=== PATIENT | male | born 1980 | race Caucasian/White ===

== ENCOUNTER 2017-10-08 14:45 | Outpatient (CLI) | payer OTHER ==
--- NOTE | 2017-10-08 18:03 | CT ---
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 Rule out recurrence. COMPARISON: None. FINDINGS: The bilateral internal auditory canals, cochleae, vestibules, vestibular aqueducts, semicircular radha ls, facial nerve canals, carotid canals, jugular bulbs, and TMJs, have normal morphology. The left middle ear cavity, left mastoid antrum, and most of the left mastoid air cells are clear. There is thickening and retraction of the right tympanic membrane, contiguous with a small volume of soft tissue density material that partially fills a portion of the mesotympanum which abuts the tympa vic segment of the right facial nerve, and abuts the manubrium of the malleus. The ossicles are bilat erally intact, with no evidence of displacement or obvious erosion. The right scutum is truncated. Th is could be due to the previous cholesteatoma and/or previous surgery. A small area of the anterior a spect of the epitympanum, including what remains of Prussak's space, is partially opacified with a sm all amount soft tissue density material abutting the lateral aspect of the head of the malleus and german dy of incus. The right aditus ad antrum and right mastoid antrum are clear. There are fewer pneumatiz ed mastoid air cells on the right compared to the left. Most of the ones on the right are also clear. There are areas of focal osseous thinning of the right tegmen mastoideum, which makes it difficult t o evaluate for dehiscence. The right tegmen tympani appears to be grossly intact. IMPRESSION: 1. Truncation of the right scutum, which could be due to the stated history of previous cholesteatom a and/or previous surgical intervention. 2. Retraction of the right tympanic membrane, and partial opacification of the right middle ear cavi ty in the mesotympanum and epitympanum. This is nonspecific, and could represent granulation tissue, otitis media, or early recurrent cholesteatoma. 3. The left temporal bone structures are normal. POS: [facility]
== END 2017-10-08 14:46 | disposition home or self-care (01) ==
LOC: CT 14:45
PROVIDERS: ATTEND Otolaryngology Plastic Surgery within the Head & Neck
DX: H71.91 Unspecified cholesteatoma, right ear (principal); H74.8X1 Other specified disorders of right middle ear and mastoid
CPT/HCPCS: 70480

== ENCOUNTER 2017-10-24 12:03 | Outpatient (CLI) | payer OTHER ==
[2017-10-24 14:00] LABS: #Eosinphils 0.4 thou/uL (0.0-0.7); #Lymphocytes 2.1 thou/uL (1.20-3.40); #Monocytes 0.4 thou/uL (0.11-0.59); %Basophils 0.6 % (0.0-1.0); %Eosinophils 6.3 % (0.0-10.0); %Lymphocytes 29.8 % (21.0-51.0); %Monocytes 6.2 % (0.0-10.0); %Neutrophils 57.2 % (42.0-75.0); Hemoglobin 16.6 g/dL (14.0-18.0); Mean Corpuscular HGB CONC 33.3 g/dL (32.0-36.0); Mean Corpuscular Hemoglobin 32.6 pg (27.0-31.0); Mean Corpuscular Volume 97.9 fL (78.0-98.0); Mean Platelet Volume 7.7 fL (7.4-10.4); Platelet Count 173 thou/uL (130-400); RBC Distribution Width 11.8 % (11.5-14.5); Red Blood Cell (RBC) Count 5.09 mill/uL (4.70-6.10)
== END 2017-10-24 12:04 | disposition home or self-care (01) ==
LOC: LABBT 12:03
PROVIDERS: ATTEND Orthopaedic Surgery
DX: Z01.812 Encounter for preprocedural laboratory examination (principal); G56.01 Carpal tunnel syndrome, right upper limb
CPT/HCPCS: 85025

== ENCOUNTER 2017-10-25 07:45 | Day surgery (SDC) | payer OTHER ==
[2017-10-25] MEDS ORDERED: Midazolam HCl 2 mg/2 ml Vial ONE ×2 (09:03→09:36)
[2017-10-25] MEDS ORDERED: CEFAZOLIN/Water 2 GM/20 ML SYRINGE ONE (09:03)
[2017-10-25] MEDS ORDERED: Clindamycin/D5W 600 mg/50 ml Premix Bag ONE (09:15)
[2017-10-25] MEDS ORDERED: Fentanyl 100 MCG/2 ML VIAL ONE ×2 (09:36→11:20)
[2017-10-25] MEDS ORDERED: Lidocaine 1% (PF) 30 ML VIAL ONE (10:07)
--- NOTE | 2017-10-25 11:58 | OP ---
DATE OF PROCEDURE: 10/25/2017 PREOPERATIVE DIAGNOSIS: Right carpal tunnel release, carpal tunnel syndrome. POSTOPERATIVE DIAGNOSIS: Right carpal tunnel release, carpal tunnel syndrome. PROCEDURE PERFORMED: Open carpal tunnel release, right. STAFF: Bryant Her M.D. DRESSMAKING TEACHER: None. ANESTHESIA: The patient received an LMA with 8 mL of 1% lidocaine plain. TOURNIQUET TIME: Seven minutes at 250 mmHg. ESTIMATED BLOOD LOSS: 8 mL. IMPLANTS: None. ANTIBIOTICS: Clindamycin 600 mg. COMPLICATIONS: None. HISTORY OF PRESENT ILLNESS: Mr. Bryant 37-year-old male who presented with right carpal tunnel syndrome. He had a previous release on the left side. I discussed with the patient the risks and benefits of an open carpal tunnel release on his right side to include pain, scar, bleeding, infection, damage to vital structures, decreased range of motion or strength, damage to nerve, loss of life or limb. The patient understood the risks and benefits of procedure and elected to proceed. PROCEDURE NOTE: Time-out was performed designating the patient's right upper extremity as the operative site based on site, consents and markings. The patient's upper extremity was prepped and draped in sterile fashion. Tourniquet was brought up for a total of 7 minutes. I made an incision down through the hypothenar and thenar just on the thenar eminence. We came down on the radial aspect of the fourth ray, down through skin, proximal Hatfield's cardinal line down through skin, came down, bluntly dissected with scissors down the palmar fascia which I dissected, I then came down distally, placed my place a mosquito between the nerve and the transverse carpal ligament as well as portion of the patient's palmaris brevis, came down through protecting the nerve throughout its course. A small 1 mm roni at the more proximal side of the nerves at the epineurium, nothing was exposed. The patient had a protection all the way through his palmar fascia, his transection of his palmaris brevis and although it did trend the transverse carpal ligament completely released the nerve ensured I could get a fingerbreadth proximally and had no other protected it completely throughout. I checked the epineurium it was not seen all the way fully through, had a small fissure 1 mm of the nerve. I ensured it was all the way through. I let the tourniquet down. The patient had control of bleeding. After we controlled bleeding, washed the wound. I then placed a 4-0 nylon horizontal mattress sutures in place, overall had good closure. I washed, closed and placed 7 mL of lidocaine plain post- procedure. The patient was placed in a splint and begin finger range of motion. I will see him back in clinic in about 10-14 days. WILL
[2017-10-25] MEDS ORDERED: PROPOFOL 200 MG/20 ML VIAL ONE (15:01)
[2017-10-25] MEDS ORDERED: Ondansetron HCl/PF 4 MG/2 ML Vial ONE (15:01)
== END 2017-10-25 12:43 | disposition home or self-care (01) ==
LOC: SDC 07:45
PROVIDERS: ATTEND Orthopaedic Surgery
PROC: 01N50ZZ Release Median Nerve, Open Approach (ICD-10-PCS; principal; 2017-10-25)
DX: G56.01 Carpal tunnel syndrome, right upper limb (principal); E11.9 Type 2 diabetes mellitus without complications; E78.2 Mixed hyperlipidemia; E78.1 Pure hyperglyceridemia; I10 Essential (primary) hypertension; E66.9 Obesity, unspecified; Z79.899 Other long term (current) drug therapy; Z79.84 Long term (current) use of oral hypoglycemic drugs; Z88.0 Allergy status to penicillin; Z68.32 Body mass index [BMI] 32.0-32.9, adult
CPT/HCPCS: 96374; J2001; J2250; J2405; J2704; J3010; J3490

== ENCOUNTER 2018-09-09 06:50 | Day surgery (SDC) | payer OTHER ==
[2018-09-06 08:44] VITALS: BMI 31.1
[2018-09-09] MEDS ORDERED: Bupivacaine/Epinephrine 0.25% 30 ML VIAL ONE (07:31)
[2018-09-09] MEDS ORDERED: EPINEPHrine 1 MG/ML AMP ONE (07:31)
[2018-09-09] MEDS ORDERED: Lidocaine 1% w/Epinephrine 1:100K 20 ML VIAL ONE (07:31)
[2018-09-09] MEDS ORDERED: Bacitracin Zinc Ointment 30 gm TUBE ONE (07:32)
[2018-09-09] MEDS ORDERED: Sodium Chloride 0.9% 10 ML ONE (07:32)
[2018-09-09] MEDS ORDERED: Midazolam HCl 2 mg/2 ml Vial ONE ×2 (09:04→09:05)
[2018-09-09] MEDS ORDERED: Famotidine/PF 20 mg/2ml Vial ONE (09:05)
[2018-09-09] MEDS ORDERED: Fentanyl 100 MCG/2 ML VIAL ONE ×2 (09:05→11:20)
[2018-09-09] MEDS ORDERED: Clindamycin/D5W 900 mg/50 ml Premix Bag ONE (09:37)
[2018-09-09] MEDS ORDERED: Gelfilm 1 EA Packet ONE (10:27)
[2018-09-09] MEDS ORDERED: Esmolol 100 MG/10 ML VIAL ONE (11:13)
[2018-09-09] MEDS ORDERED: Lidocaine 1% PF 5 ML VIAL ONE (11:13)
[2018-09-09] MEDS ORDERED: Succinylcholine Chloride 20 MG/ML 10 ml SYRINGE FS ONE (11:13)
[2018-09-09] MEDS ORDERED: PROPOFOL 200 MG/20 ML VIAL ONE (11:13)
[2018-09-09] MEDS ORDERED: Ondansetron PF 4 MG/2 ML Vial ONE (11:13)
[2018-09-09] MEDS ORDERED: Rocuronium Bromide 10 MG/ML (10ML VIAL) ONE (11:13)
[2018-09-09] MEDS ORDERED: Dexamethasone 20 MG/5 ML VIAL ONE (11:13)
--- NOTE | 2018-09-09 17:41 | OP ---
DATE OF PROCEDURE: 09/09/2018 PREOPERATIVE DIAGNOSIS: Right cholesteatoma. PROCEDURES PERFORMED: 1. Right tympanoplasty with ossicular chain reconstruction. 2. Microscopic surgical procedure. POSTOPERATIVE DIAGNOSIS: Right cholesteatoma. ANESTHESIA: General. COMPLICATIONS: None. ESTIMATED BLOOD LOSS: 5 mL. SPECIMENS: None. LOGISTICS ACCOUNT MANAGER: None. DISPOSITION: Stable to recovery room. SUMMARY: Transcanal through what had been previously an atticotomy, released the tensor, the incus was near total eroded, but was blocking the attic, lateralized the small retraction pocket, reinforced the whole posterior ear with fascia, placed a PORP on the mobile stapes, noted cholesteatoma of the middle ear space. Dissected out the synechiae between the posterior mesotympanum and anterior eustachian tube and thick mucoid material were suctioned out of the anterior compartment. DESCRIPTION OF PROCEDURE: Procedure #1, right tympanoplasty with ossicular chain reconstruction: After informed consent was obtained, the patient was taken to the operating room, placed in supine position. General endotracheal anesthetic was administered. Table was rotated 180 degrees. Right ear was injected postauricular and transcanal with 0.25% Marcaine with epinephrine. The right ear draped and prepped in sterile fashion. Flap was elevated and lateralized and retracted pocket which was between the lateral process and malleus and incus. This area was filled with dense fascia and continued to elevate the flap, sectioned the tensor to allow laterization. The stapes was adhered and scarred to the fascial nerve superiorly. This adhesion was removed, dissected off; however, the proximate may have it refixed, but good mobility was obtained with release of the adhesions. A PORP prosthesis offset was placed on the stapes superstructure and tympanomeatal flap was placed down, and Gelfilm was used throughout the middle ear spaced to prevent adhesions. Gelfoam was placed lateral to the flap. Bacitracin ointment filled the canal. Postauricular incision was made to harvest the fascia. This was closed after irrigating with saline. It was closed with 3-0 Monocryl and Dermabond for the skin. Procedure #2: Microscopic surgical procedure: Throughout the entire operation, microscope was integral of the procedure using 2 to 14 power and high illumination. Procedure #3: Facial nerve monitoring. At beginning of the operation, EMG electrodes were placed in orbicularis oculi and orbicularis amie, attached to nerve integrity monitoring system. This was done for possibility of having perform mastoidectomy in attic to retract the cholesteatoma. Mastoidectomy was not performed, and there was no unexpected fascial nerve response except when Bovie-ing of #3 suction at about the 7 o'clock position on the ear canal with the Bovie set at 5, we did get 1 response, however, this process was discontinued. The patient tolerated the procedure well, returned over to anesthesia in stable condition. Job ID: [id number]
== END 2018-09-09 12:10 | disposition home or self-care (01) ==
LOC: SDC 06:50
PROVIDERS: ATTEND Otolaryngology Otology & Neurotology
PROC: 09U507Z Supplement Right Middle Ear with Autologous Tissue Substitute, Open Approach (ICD-10-PCS; principal; 2018-09-09)
PROC: 09Q50ZZ Repair Right Middle Ear, Open Approach (ICD-10-PCS; principal; 2018-09-09)
DX: H71.91 Unspecified cholesteatoma, right ear (principal); H90.2 Conductive hearing loss, unspecified; E11.9 Type 2 diabetes mellitus without complications; E78.2 Mixed hyperlipidemia; I10 Essential (primary) hypertension; E66.9 Obesity, unspecified; Z68.31 Body mass index [BMI] 31.0-31.9, adult; Z88.0 Allergy status to penicillin; Z79.84 Long term (current) use of oral hypoglycemic drugs; Z79.899 Other long term (current) drug therapy
CPT/HCPCS: J0171; J1100; J2001; J2250; J2405; J2704; J3010; J3490; S0028